=== PATIENT | female | born 1990 | race Caucasian/White ===

== ENCOUNTER 2024-11-26 20:15 | Emergency (ER) | payer BC, OTHER ==
[2024-11-26] MEDS ORDERED: HYDROCODONE/APAP 5/325 MG TAB ONE ×2 (20:30→21:25)
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
[2024-11-26 21:33] VITALS: TEMP 98.5
[2024-11-26 21:34] VITALS: BP 102/83; O2SAT 99
== END 2024-11-26 21:29 | disposition home or self-care (01) ==
LOC: ER 20:15
DX: S09.90XA Unspecified injury of head, initial encounter (principal); V49.40XA Driver injured in collision with unspecified motor vehicles in traffic accident, initial encounter; Z79.01 Long term (current) use of anticoagulants
CPT/HCPCS: 70450; 72125; 99284